=== PATIENT | male | born 1960 | race Caucasian/White ===

== ENCOUNTER 2022-10-11 15:23 | Emergency (ER) | payer MEDICAID ==
[~2022-10-11] VITALS: Ht 190.5 cm; Wt 96.2 kg
--- NOTE | 2022-10-11 15:34 | NUR ---
Patient is AOx4 but can not recall the exact names & dosages of his home medicines.
[2022-10-11 16:34] LABS: HEMATOCRIT 47.3 % (36.7-47.1); MEAN CORPUSCULAR HEMOGLOBIN 32.1 uug (23.8-33.4); MEAN CORPUSCULAR VOLUME 93.9 fL (73.0-96.2); PLATELET COUNT (AUTO) 164 K/uL (152-348)
[2022-10-11 16:45] LABS: ALANINE AMINOTRANSFERASE 16 U/L (16-63); ALKALINE PHOSPHATASE 130 U/L (50-136); ASPARTATE AMINOTRANSFERASE 5 U/L (15-37); BILIRUBIN,DIRECT 0.2 mg/dL (0.0-0.2); BILIRUBIN,TOTAL 0.4 mg/dL (0.2-1.0); CARBON DIOXIDE 29 mmol/L (21-32); CHLORIDE 97 mmol/L (98-107); CREATININE 1.1 mg/dL (0.6-1.3); TOTAL PROTEIN, SERUM 7.1 g/dL (6.4-8.2); UREA NITROGEN, BLOOD 22 mg/dL (7-18)
[2022-10-11] MEDS ORDERED: IV NORMAL SALINE 1000 ML BAG IV ONE (17:30)
[2022-10-11] MEDS ORDERED: INSULIN REGULAR, HUMAN 300 UNIT/3 ML VIAL IV ONE (17:30)
[2022-10-11] MEDS ORDERED: INSULIN REGULAR, HUMAN 300 UNIT/3 ML VIAL ONE (17:47)
--- NOTE | 2022-10-11 19:25 | NUR ---
Gave report to Iker (RN).
--- NOTE | 2022-10-11 19:43 | NUR ---
ACCU CHECK DONE. BS - 274. AWARE.
--- NOTE | 2022-10-11 20:36 | NUR ---
Patient discharged to home in stable condition. Written and verbal after care instructions given. Patient verbalizes understanding of instructions. Stressed follow up or return to ER for worsening s/s.
[2022-10-11 20:37] VITALS: BP 131/77; TEMP 98.7; O2SAT 96
== END 2022-10-11 20:15 | disposition home or self-care (01) ==
LOC: ER 15:23
DX: E11.65 Type 2 diabetes mellitus with hyperglycemia (principal); E86.0 Dehydration; R07.89 Other chest pain
CPT/HCPCS: 99285; 96374; 71045; 96361; 80076; 80048; 82009; 82962; 83880; 85025; 85379; 85730; 84484; 36415; 93005; J1815; J7040; A4663